=== PATIENT | female | born 2005 | race Caucasian/White ===

== ENCOUNTER 2025-01-11 08:55 | Emergency (ER) | payer BC, SELFPAY ==
[2025-01-11 09:01] VITALS: BP 129/90
--- NOTE | 2025-01-11 09:58 | ED.GENMED ---
History of Present Illness
General
Chief Complaint: Anxiety
Source: patient and family
Time Seen by Provider: 01/11/25 09:47
History of Present Illness
History of Present Illness:
This patient is a 19-year-old female presents emergency department with extreme anxiety for at least the past week. She describes feeling 'out of it' also described as 'disconnected'. She does not feel suicidal although she does have some mild
depression as well. Her predominant complaint is that of feeling anxious. Patient is not taking any medications nor is she in therapy. She does have a history of depression and anxiety. She denies any physical complaints.
Past History
Past History
ED Past Medical History: Other (ADHD, depression anxiety)
ED Past Surgical History: None
Social History
Tobacco: Non-smoker
Alcohol: None
Drug: None
Personal: Single
Living: with family
Phy Exam
Physical Exam
Physical Exam:
GENERAL: Alert , in no apparent distress
EYE: pupils equal and reactive
NECK: Supple, no significant adenopathy.
ENT: o/p clr, mmm.
CARDIAC: Regular rate and rhythm .
LUNGS: Clear breath sounds bilaterally, no acute respiratory distress, no wheezes/rales/rhonchi
ABDOMEN: Soft, without focal tenderness, no r/g, no cvat
NEUROLOGICAL: Alert and oriented, no focal neuro deficits
SKIN: Warm and dry, skin intact.
MUSCULOSKELETAL: No edema, well perfused.
PSYCH: Normal and appropriate interaction but obviously anxious, no si/hi.
Course
Orders/Labs/Results
Orders:
Orders
01/11/25 09:29
Crisis Consult Urgent
Reason for Consult: anxiety/panic attacks/ patient request
01/11/25 09:57
Lorazepam [Ativan] 1 mg PO NOW STA
Vital Signs
Initial and Last Documented VS:
Initial Vital Signs
Temp Pulse Resp BP Pulse Ox
97.7 F 113 20 129/90 100
01/11/25 09:01 01/11/25 09:01 01/11/25 09:01 01/11/25 09:01 01/11/25 09:01
Last Documented Vital Signs
Temp Pulse Resp BP Pulse Ox
97.7 F 113 20 129/90 100
01/11/25 09:01 01/11/25 09:01 01/11/25 09:01 01/11/25 09:01 01/11/25 09:01
*Critical Care Note
Total Time (30-74mins, 75-104mins- exclusive of procedures): Not Applicable
Update Note
Update Note:
Patient presents to the Emergency Department with __anxious
Number and Complexity of Problems Addressed at the Encounter
� Chronic conditions affecting care:
� Acute Exacerbation and/or Progression of Chronic Illness:
� Differential Diagnosis includes: but not limited to situational anxiety, generalized anxiety disorder, etc.
Amount and/or Complexity of Data to be Reviewed and Analyzed
� I performed an independent evaluation of and my interpretation is:
EKG:
CT:
Xrays:
Laboratory Studies:
Other:
� Review of other/old records reveals:
� Clinical information was obtained by an independent historian:
� Prescriptions/Medications Considered but not given:
� Further testing considered but not performed:
Risk of Complications and/or Morbidity or Mortality of Patient Management
� Social determinants of health affecting care:
� Discussion with other providers (PCP, Hospitalists, Consultants, etc):
� Escalation of care including admission/observation vs risk of discharge considered:PT seen by crisis, given optinos for care including inpt, intensive op,e tc. Before I went back into room, pt walked out of ED with mom
(without my knowledge). I jsut tried to call pt, no answer. Pt did not exhibit si/hi.
ED Attending Note
-
Portions of this chart may have been created with voice recognition software.� Occasional wrong word or��sound alike� substitutions may have occurred due to the inherent limitations of voice recognition software.
Discharge Plan
Departure
Patient Disposition: Elopement
Referrals:
Kaylin Burt NP [Family Provider] -
Interventions
Interventions:
*Risk Screen - Suicide Last Done: 01/11/25 09:01
*General Assessment Last Done: 01/11/25 09:01
*Neglect/Abuse Screening Last Done: 01/11/25 09:01
*ED- Fall Risk Assessment Last Done: 01/11/25 09:35
*ED COVID-19 Vaccine History Last Done: 01/11/25 09:35
*Nursing Disposition Last Done: 01/11/25 12:10
ED-Psychological Assessment Last Done: 01/11/25 09:35
Discharge Date and Time
Discharge Date/Time: 01/11/25 12:11
Print Language: UPPER SORBIAN
[2025-01-11] MEDS: ATIVAN 1 MG PO (10:12)
== END 2025-01-11 12:11 | disposition left against medical advice (07) ==
LOC: EMR 08:55
PROVIDERS: EMERGENCY PHYSICIAN Emergency Medicine; FAMILY PHYSICIAN Nurse Practitioner Family
DX: F41.9 Anxiety disorder, unspecified (principal); F32.A Depression, unspecified; F90.9 Attention-deficit hyperactivity disorder, unspecified type; F41.8 Other specified anxiety disorders
CPT/HCPCS: 99283

== ENCOUNTER 2025-02-11 14:53 | Emergency (ER) | payer BC, SELFPAY ==
[2025-02-11 14:55] VITALS: BP 109/71
--- NOTE | 2025-02-11 17:16 | ED.GENMED ---
History of Present Illness
General
Chief Complaint: Dental Problem
Source: patient
Exam Limitations: none
Time Seen by Provider: 02/11/25 17:07
Nursing documentation reviewed up to this point in time: agreed with
History of Present Illness
History of Present Illness:
19 yo female with right lower tooth pain. She called her dentist but no appointment available until March. Denies fever or chills. Tooth sensitive to cold. Tooth has been chipped for a while but started hurting her this past week. Taking Ibuprofen
600 mg with no relief.
Past History
Past History
ED Past Medical History: Other (ADHD, depression anxiety)
ED Past Surgical History: None
Social History
Tobacco: Non-smoker
Alcohol: None
Drug: None
Personal: Single
Living: with family
Employment: Not employed
Review of Systems
Review of Systems
Allergies reviewed?: Yes
All Other Systems: ROS reviewed and negative except as documented in HPI and ROS
Constitutional: Denies fever or chills
EENT: Reports other (Painful tooth)
ABD/GI: Denies nausea or vomiting
Musculoskeletal: Denies neck pain
Neurological: Denies headache
Phy Exam
Physical Exam
Physical Exam:
GENERAL: No acute distress. A&Ox3.
CONSTITUTIONAL: Afebrile.
Neck: Supple, no lymphadenopathy
ENMT: moist mucus membranes, Pharynx nl. Tooth #30 with avulsed piece, area muniz (?cavity?), no palpable abscess, no significant tenderness of gum. No trismus
RESPIRATORY: Regular respirations, nonlabored, lungs clear.
CARDIOVASCULAR: Regular rate and rhythm, no murmurs, no rubs.
MUSCULOSKELETAL: Moves with ease. Well perfused.
SKIN: Warm, dry, pink
PSYCH: Normal mood and affect. Well kept, interactive and appropriate
NEUROLOGIC: Awake, alert and oriented. No focal neurological deficits
Course
Vital Signs
Initial and Last Documented VS:
Initial Vital Signs
Temp Pulse Resp BP Pulse Ox
97.7 F 72 16 109/71 100
02/11/25 14:55 02/11/25 14:55 02/11/25 14:55 02/11/25 14:55 02/11/25 14:55
Last Documented Vital Signs
Temp Pulse Resp BP Pulse Ox
97.7 F 69 16 111/74 98
02/11/25 14:55 02/11/25 17:30 02/11/25 17:30 02/11/25 17:30 02/11/25 17:30
MDM/Problems Addressed
Differential Diagnosis Includes:
tooth decay, tooth fracture, abscess
MDM/Problems Addressed:
19 yo female with right lower tooth pain. She called her dentist but no appointment available until March. Denies fever or chills. Tooth sensitive to cold. Tooth has been chipped for a while but started hurting her this past week. Taking Ibuprofen
600 mg with no relief.
Afebrile, NAD\\
No sign of abscess
Rx for Amoxicillin sent to her pharmacy
She will call dentist back and reschedule
*Pulse Oximetry
SaO2: 100
Oxygen Mode of Delivery: Room air
Patient hypoxic: not evaluated
*Critical Care Note
Total Time (30-74mins, 75-104mins- exclusive of procedures): Not Applicable
ED Attending Note
-
Portions of this chart may have been created with voice recognition software.� Occasional wrong word or��sound alike� substitutions may have occurred due to the inherent limitations of voice recognition software.
Discharge Plan
Departure
Patient Disposition: Home (Routine Discharge)
Date of Disposition: 02/11/25
Time of Disposition: 17:13
Patient with high blood pressure during this ER visit?: No
Condition: Good
Discharge Problem:
Tooth pain
Instructions: Tooth Decay, Adult (DC), Fractured Tooth (DC)
Prescriptions:
New
amoxicillin 250 mg/5 mL suspension for reconstitution
250 mg PO TID 10 Days Qty: 150 0RF
Referrals:
your, dentist [Other] - Next open appointment
aKylin Burt NP [Family Provider, Family Practice]
Activity Restrictions/Additional Instructions:
As we discussed, I sent a prescription to your pharmacy for amoxicillin to take 500 mg 3 times a day for 10 days
Continue Tylenol ibuprofen as needed for pain. Be sure you have some food in your stomach when you take the ibuprofen
Call your dentist back and schedule that appointment for March, asked them to put you on a list for people that canceled their appointments
Interventions
Interventions:
*Risk Screen - Suicide Last Done: 02/11/25 17:31
*General Assessment Last Done: 02/11/25 17:31
*Neglect/Abuse Screening Last Done: 02/11/25 17:31
*ED- Fall Risk Assessment Last Done: 02/11/25 17:31
*ED COVID-19 Vaccine History Last Done: 02/11/25 17:31
*Nursing Disposition Last Done: 02/11/25 17:33
Discharge Date and Time
Discharge Date/Time: 02/11/25 17:35
Print Language: PORTUGUESE
[2025-02-11 17:30] VITALS: BP 111/74
== END 2025-02-11 17:35 | disposition home or self-care (01) ==
LOC: EMR 14:53
PROVIDERS: EMERGENCY PHYSICIAN Emergency Medicine; FAMILY PHYSICIAN Nurse Practitioner Family
DX: K08.89 Other specified disorders of teeth and supporting structures (principal); F90.9 Attention-deficit hyperactivity disorder, unspecified type; F41.8 Other specified anxiety disorders
CPT/HCPCS: 99282

== ENCOUNTER → 2025-03-09 14:24 | Outpatient (REF) | payer BC, SELFPAY | LOC: HWRAD 14:24 | PROVIDERS: ATTENDING PHYSICIAN Nurse Practitioner Family | DX: R60.0 Localized edema (principal); R68.84 Jaw pain; K03.81 Cracked tooth | CPT/HCPCS: 70490 ==

== ENCOUNTER → 2025-04-04 14:49 | Outpatient (REF) | payer BC, SELFPAY | LOC: RAD 14:49 | PROVIDERS: ATTENDING PHYSICIAN Student in an Organized Health Care Education/Training Program; FAMILY PHYSICIAN Nurse Practitioner Family | DX: R14.0 Abdominal distension (gaseous) (principal) | CPT/HCPCS: 74018 ==

== ENCOUNTER 2025-05-19 08:19 | Emergency (ER) | payer BC, SELFPAY ==
[2025-05-19 08:21] VITALS: BP 116/84
--- NOTE | 2025-05-19 08:42 | ED.GENMED ---
History of Present Illness
General
Chief Complaint: Throat Problem
Source: patient
Time Seen by Provider: 05/19/25 08:30
History of Present Illness
History of Present Illness:
20-year-old female presents emergency department after having a [employer] drained on Friday. She states that a tube was placed at that time, and she saw her doctor in follow-up on Friday and that tube was removed and she was told that the area was
looking well. She was placed on antibiotics which she is compliant with. She started to feel like her throat was starting to hurt her a little bit more associated with mild headaches. She is going on a trip to [place] and wanted to be sure that
everything was okay before going. She denies fever, chills, change in voice, trouble opening mouth, drooling, difficulty eating or drinking, chest pain, shortness of breath, abdominal pain, nausea, vomiting, neck swelling or pain, or other
complaints.
Past History
Past History
ED Past Medical History: Other (ADHD, depression anxiety)
ED Past Surgical History: None
Social History
Tobacco: Non-smoker
Alcohol: None
Drug: None
Personal: Single
Living: with family
Employment: Not employed
Phy Exam
Physical Exam
Physical Exam:
GENERAL: Alert , in no apparent distress, very well-appearing
EYE: pupils equal and reactive, no photophobia
NECK: Supple, no significant adenopathy.
ENT: o/p clr, mmm, no trismus, no drool, uvula midline, no exudate, no [employer] noted, normal exam, no muffled voice, no submental swelling.
CARDIAC: Regular rate and rhythm .
LUNGS: Clear breath sounds bilaterally, no acute respiratory distress, no wheezes/rales/rhonchi
ABDOMEN: Soft, without focal tenderness, no r/g, no cvat
NEUROLOGICAL: Alert and oriented, no focal neuro deficits
SKIN: Warm and dry, skin intact.
MUSCULOSKELETAL: No edema, well perfused.
PSYCH: Normal and appropriate interaction.
Course
Vital Signs
Initial and Last Documented VS:
Initial Vital Signs
Temp Pulse Resp BP Pulse Ox
98 F 86 16 116/84 98
05/19/25 08:21 05/19/25 08:21 05/19/25 08:21 05/19/25 08:21 05/19/25 08:21
Last Documented Vital Signs
Temp Pulse Resp BP Pulse Ox
98 F 86 16 116/84 98
05/19/25 08:21 05/19/25 08:21 05/19/25 08:21 05/19/25 08:21 05/19/25 08:21
*Pulse Oximetry
SaO2: 98
Oxygen Mode of Delivery: Room air
Patient hypoxic: no
*Critical Care Note
Total Time (30-74mins, 75-104mins- exclusive of procedures): Not Applicable
Update Note
Update Note:
Patient presents to the Emergency Department with sore throat
Number and Complexity of Problems Addressed at the Encounter
� Chronic conditions affecting care:
� Acute Exacerbation and/or Progression of Chronic Illness:
� Differential Diagnosis includes: But not limited to reaccumulation of [employer], pharyngitis, RPA, etc. etc. etc.
Amount and/or Complexity of Data to be Reviewed and Analyzed
� I performed an independent evaluation of and my interpretation is:
EKG:
CT:
Xrays:
Laboratory Studies:
Other:
� Review of other/old records reveals:
� Clinical information was obtained by an independent historian:
� Prescriptions/Medications Considered but not given:
� Further testing considered but not performed:
Risk of Complications and/or Morbidity or Mortality of Patient Management
� Social determinants of health affecting care:
� Discussion with other providers (PCP, Hospitalists, Consultants, etc):
� Escalation of care including admission/observation vs risk of discharge considered: Very reassuring exam here. Patient please that there is not noted reaccumulation of [employer] or other abnormalities, will continue with
antibiotics, add Motrin as needed for pain, discussed with her importance of follow-up and reasons return to the ER.
ED Attending Note
-
Portions of this chart may have been created with voice recognition software.� Occasional wrong word or��sound alike� substitutions may have occurred due to the inherent limitations of voice recognition software.
Discharge Plan
Departure
Patient Disposition: Home (Routine Discharge)
Date of Disposition: 05/19/25
Time of Disposition: 08:42
Patient with high blood pressure during this ER visit?: Yes
Condition: Good
Discharge Problem:
Acute sore throat
Instructions: Sore Throat, Adult (DC), BLOOD PRESSURE
Prescriptions:
No Action
amoxicillin 250 mg/5 mL suspension for reconstitution
250 mg PO TID 10 Days Qty: 150 0RF
Activity Restrictions/Additional Instructions:
IF YOU DEVELOP CHEST PAIN, TROUBLE BREATHING, CHANGE IN VOICE, DIFFICULTY SWALLOWING, DIFFICULTY OPENING YOUR MOUTH, SWELLING, FEVER, OR OTHER WORRISOME SIGNS, GO TO THE ER IMMEDIATELY!
Interventions
Interventions:
*Risk Screen - Suicide Last Done: 05/19/25 08:21
*Neglect/Abuse Screening Last Done: 05/19/25 08:21
Discharge Date and Time
Print Language: FRISIAN
== END 2025-05-19 09:05 | disposition home or self-care (01) ==
LOC: EMR 08:19
PROVIDERS: EMERGENCY PHYSICIAN Emergency Medicine; FAMILY PHYSICIAN Nurse Practitioner Family
DX: J02.9 Acute pharyngitis, unspecified (principal); R03.0 Elevated blood-pressure reading, without diagnosis of hypertension; F90.9 Attention-deficit hyperactivity disorder, unspecified type; F41.9 Anxiety disorder, unspecified; F32.A Depression, unspecified
CPT/HCPCS: 99282